=== PATIENT | female | born 2000 | race Caucasian/White ===

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

== ENCOUNTER 2022-11-25 00:48 | Inpatient (IN) | payer MEDICAID ==
[~2022-11-25] VITALS: Ht 170.2 cm; Wt 57.0 kg
[2022-11-25 01:45] LABS: Basophils # (auto) 0.1 10 ^3/uL (0-0.2); Basophils % (auto) 0.8 % (0.0-2.0); Eosinophils # (auto) 0.1 10 ^3/uL (0-0.8); Eosinophils % (auto) 1.1 % (0.0-7.0); Hematocrit 44.1 % (36.0-46.0); Hemoglobin 14.9 g/dL (12.2-16.2); Lymphocytes # (auto) 2.9 10 ^3/uL (0.4-5.4); Lymphocytes % (auto) 38.3 % (10.0-50.0); Mean Corpuscular Hemoglobin 30.3 pg (28.0-32.0); Mean Corpuscular Hgb Conc. 33.9 g/dL (32.0-36.0); Mean Corpuscular Volume 89.5 fL (80.0-100.0); Monocytes # (auto) 0.4 10 ^3/uL (0-1.3); Monocytes % (auto) 5.8 % (0.0-12.0); Nucleated Red Blood Cells % 0.2 %; Red Blood Cells 4.92 10^6/uL (4.0-5.20); Red Cell Distribution Width 13.9 % (11.8-14.3); White Blood Cell 7.5 10^3/uL (4.4-10.8)
[2022-11-25 01:55] LABS: Alanine Aminotransferase 56 U/L (7-40); Albumin 4.5 g/dL (3.2-4.8); Alkaline Phosphatase 109 U/L (46-116); Anion Gap 12.9 (5-15); Aspartate Aminotransferase 165 U/L (13-40); Carbon Dioxide 18.1 mmol/L (20-30); Chloride 114 mmol/L (98-107); Glucose 96 mg/dL (74-106); Lactic Acid w/Reflex 2.8 mmol/L (0.4-2.0); Lipase 36 U/L (12-53); Magnesium 1.8 mg/dL (1.6-2.6); Potassium 3.6 mmol/L (3.5-5.1); Sodium 145 mmol/L (136-145)
[2022-11-25 02:00] LABS: BUN/Creatinine Ratio 6.8 (10.0-20.0); Blood Urea Nitrogen < 5 mg/dL (9-23)
[2022-11-25 02:06] LABS: Creatine Kinase IFCC 5441 U/L (34-145)
[2022-11-25 02:31] LABS: Bilirubin, Total 0.3 mg/dL (0.2-1.0)
[2022-11-25 02:40] LABS: Urine Bacteria NONE SEEN /hpf (None Seen); Urine Blood TRACE /uL (Negative); Urine Clarity Clear (Clear); Urine Color Colorless (Yellow); Urine Protein, UAD Negative (Negative); Urine Specific Gravity 1.002 (1.001-1.035); Urine Urobilinogen Normal (Negative); Urine WBC <1 /hpf (0 - 5); Urine pH 6.5 (5.0-8.0)
[2022-11-25] MEDS ORDERED: SODIUM CHLORIDE 0.9% 1,000 ML IV ONE ×2 (03:00→03:45)
[2022-11-25 03:31] LABS: Platelet Estimate Decreased
[2022-11-25 04:00] VITALS: PULSE 82; RESP 16; O2SAT 99
[2022-11-25] MEDS ORDERED: MORPHINE SULFATE INJ 2 MG/ml SYRG IV PRN (04:00)
[2022-11-25] MEDS ORDERED: ACETAMINOPHEN 325 MG TAB PO PRN (04:00)
[2022-11-25] MEDS ORDERED: NITROGLYCERIN 0.4 MG SL TAB SL PRN (04:00)
[2022-11-25] MEDS ORDERED: SODIUM BICARB 50ML SYR 150 ML in D5W 5% 1,000 ML IV SCH (04:00)
[2022-11-25] MEDS ORDERED: ONDANSETRON HCL 4 MG/2 ML VIAL IV PRN (04:00)
[2022-11-25 04:41] LABS: Amphetamine Screen, Urine Neg (NEGATIVE); Barbiturate Scree,Urine Neg (NEGATIVE); Benzodiazephine Screen, Urine Neg (NEGATIVE); Cannabinoid Screen, Urine Pos (NEGATIVE); Cocaine Screen, Urine Neg (NEGATIVE); Opiate Scree,Urine Neg (NEGATIVE); Phencyclidine Screen, Urine Neg (NEGATIVE)
[2022-11-25] MEDS ORDERED: IOHEXOL 350 MG/ML 100ML IJ ONE (05:13)
[2022-11-25] MEDS ORDERED: SODIUM BICARBONATE 8.4 % INJ 50ML VIAL IV ONE (05:30)
[2022-11-25] MEDS: HYDROcodone-ACET 5/325MG TAB PO PRN ×2 (05:50→16:26)
[2022-11-25 08:06] LABS: Basophils # (auto) 0 10 ^3/uL (0-0.2); Basophils % (auto) 0.3 % (0.0-2.0); Eosinophils # (auto) 0.1 10 ^3/uL (0-0.8); Eosinophils % (auto) 0.9 % (0.0-7.0); Hematocrit 40.1 % (36.0-46.0); Hemoglobin 13.5 g/dL (12.2-16.2); Lymphocytes # (auto) 3.1 10 ^3/uL (0.4-5.4); Lymphocytes % (auto) 36.8 % (10.0-50.0); Mean Corpuscular Hemoglobin 30.3 pg (28.0-32.0); Mean Corpuscular Hgb Conc. 33.7 g/dL (32.0-36.0); Monocytes # (auto) 0.9 10 ^3/uL (0-1.3); Monocytes % (auto) 10.2 % (0.0-12.0); Neutrophils # (auto) 4.3 10 ^3/uL (1.6-8.6); Neutrophils % (auto) 51.8 % (37.0-80.0); Red Blood Cells 4.46 10^6/uL (4.0-5.20); Red Cell Distribution Width 13.5 % (11.8-14.3); White Blood Cell 8.3 10^3/uL (4.4-10.8)
[2022-11-25 08:32] LABS: Calcium 8.1 mg/dL (8.5-10.1); Chloride 114 mmol/L (98-107); Potassium 3.7 mmol/L (3.5-5.1); Sodium 145 mmol/L (136-145)
[2022-11-25 08:38] LABS: Blood Urea Nitrogen 6 mg/dL (9-23); Glucose 90 mg/dL (74-106)
[2022-11-25] MEDS: SODIUM CHLORIDE 0.9% 1,000 ML IV SCH ×2 (11:01→16:32)
[2022-11-25 19:30] VITALS: PULSE 59; RESP 20; O2SAT 98
[2022-11-26] VITALS: BP 115/65; PULSE 58; RESP 18; TEMP 98.4; O2SAT 98
[2022-11-26] MEDS: SODIUM CHLORIDE 0.9% 1,000 ML IV SCH ×3 (01:36→07:49)
[2022-11-26 05:38] VITALS: BP 97/60; PULSE 50; RESP 18; TEMP 97.9; O2SAT 99
[2022-11-26 06:57] LABS: Basophils # (auto) 0 10 ^3/uL (0-0.2); Basophils % (auto) 0.4 % (0.0-2.0); Eosinophils # (auto) 0.1 10 ^3/uL (0-0.8); Eosinophils % (auto) 2.4 % (0.0-7.0); Hematocrit 39.3 % (36.0-46.0); Hemoglobin 13.1 g/dL (12.2-16.2); Lymphocytes % (auto) 35.1 % (10.0-50.0); Mean Corpuscular Hemoglobin 30.2 pg (28.0-32.0); Mean Corpuscular Hgb Conc. 33.4 g/dL (32.0-36.0); Mean Corpuscular Volume 90.4 fL (80.0-100.0); Monocytes # (auto) 0.5 10 ^3/uL (0-1.3); Neutrophils % (auto) 53.1 % (37.0-80.0); Red Blood Cells 4.34 10^6/uL (4.0-5.20); Red Cell Distribution Width 13.7 % (11.8-14.3); White Blood Cell 5.7 10^3/uL (4.4-10.8)
[2022-11-26 07:32] LABS: Alanine Aminotransferase 41 U/L (7-40); Albumin 3.7 g/dL (3.2-4.8); Alkaline Phosphatase 88 U/L (46-116); Anion Gap 5.5 (5-15); Aspartate Aminotransferase 68 U/L (13-40); Calcium 8.4 mg/dL (8.5-10.1); Carbon Dioxide 24.5 mmol/L (20-30); Chloride 111 mmol/L (98-107); Glucose 91 mg/dL (74-106); Potassium 3.8 mmol/L (3.5-5.1); Sodium 141 mmol/L (136-145)
[2022-11-26 07:33] LABS: Bilirubin, Total 0.6 mg/dL (0.2-1.0); Total Protein 5.8 g/dL (5.7-8.2)
[2022-11-26 07:43] LABS: Creatine Kinase IFCC 1595 U/L (34-145)
[2022-11-26 07:46] LABS: BUN/Creatinine Ratio 7.4 (10.0-20.0); Blood Urea Nitrogen < 5 mg/dL (9-23)
[2022-11-26 08:00] VITALS: PULSE 51; RESP 16; O2SAT 98
[2022-11-26] MEDS: HYDROcodone-ACET 5/325MG TAB PO PRN (09:03)
[2022-11-26 09:59] VITALS: BP 108/57; PULSE 56; RESP 20; TEMP 98.3; O2SAT 98
[2022-11-26 12:49] VITALS: BP 101/67; PULSE 60; RESP 20; TEMP 98.5; O2SAT 98
[2022-11-26] MEDS ORDERED: ACET300T58 PO (13:59)
[2022-11-26 14:07] VITALS: TEMP 36.9
== END 2022-11-26 15:05 | disposition home or self-care (01) | DRG 351 ==
LOC: EDBD 00:48 → ER 00:48 → TELE 04:16 → TELE-WESTW 23:03
PROVIDERS: ADMIT Nurse Practitioner Family; ATTEND Hospitalist
DX: T79.6XXA Traumatic ischemia of muscle, initial encounter (principal); F10.10 Alcohol abuse, uncomplicated; R74.8 Abnormal levels of other serum enzymes; Y92.410 Unspecified street and highway as the place of occurrence of the external cause; V49.9XXA Car occupant (driver) (passenger) injured in unspecified traffic accident, initial encounter; Y93.89 Activity, other specified; Y92.89 Other specified places as the place of occurrence of the external cause; Y99.8 Other external cause status
CPT/HCPCS: 36415; 70450; 71045; 71260; 72125; 73110; 73610; 74177; 80048; 80053; 80307; 80320; 81001; 81025; 82550; 83605; 83690; 83735; 84484; 85025; 93005; 97110; 97116; 97163; 97530; 99291; G0378; J2405